=== PATIENT | female | born 1945 | race Caucasian/White ===

== ENCOUNTER 2017-09-15 12:07 | Inpatient (IN) | payer MEDICARE, OTHER ==
[~2017-09-15] VITALS: Ht 149.9 cm; Wt 53.2 kg
[2017-09-15] VITALS (12 sets, daily range): BP systolic 95–154; BP diastolic 43–88; PULSE 64–85; RESP 17–28; Ht 149.9 cm; Wt 53.2 kg
[2017-09-15] MEDS ORDERED: AMLO-147 PO (13:40)
[2017-09-15] MEDS ORDERED: CARV12.579 PO (13:40)
[2017-09-15] MEDS ORDERED: ISOS30TA18 PO (13:40)
[2017-09-15] MEDS ORDERED: ATOR10TA65 PO (13:40)
[2017-09-15] MEDS ORDERED: MUCO4 PO (13:40)
[2017-09-15] MEDS ORDERED: ASPI-535 PO (13:40)
[2017-09-15] MEDS ORDERED: HYDR-3672 PO (13:40)
[2017-09-15] MEDS ORDERED: LIDOCAINE 1% (MDV) 20 ML INJ ONE (14:34)
[2017-09-15] MEDS ORDERED: MIDAZOLAM 1 MG/ML 2 ML INJ ONE (14:35)
[2017-09-15] MEDS ORDERED: FENTAnyl 50 MCG/ML VIAL ONE (14:35)
[2017-09-15] MEDS ORDERED: HEPARIN 1000 UNITS/ML 10 ML INJ ONE (14:44)
[2017-09-15] MEDS ORDERED: NITROGLYCERIN (IC) 100 MCG/ML INJ ONE (14:44)
[2017-09-15] MEDS ORDERED: VERAPAMIL 5 MG INJ ONE (14:44)
[2017-09-15] MEDS ORDERED: IODIXANOL LOCM 100 ML BTL ONE (16:35)
[2017-09-15] MEDS ORDERED: ASPIRIN 325 MG TAB ONE (16:54)
[2017-09-15] MEDS ORDERED: CLOPIDOGREL 300 MG TAB ONE (16:54)
[2017-09-15] MEDS ORDERED: morphine 2 MG INJ IV PRN (17:30)
[2017-09-15] MEDS ORDERED: hydrALAzine 20 MG INJ IV PRN (17:30)
--- NOTE | 2017-09-15 17:50 | OPR ---
Date/Time of Note Date/Time of Note DATE: 09/15/17 TIME: 17:27 Operative Report Procedure Date: Sep 15, 2017 Preoperative Diagnosis unstable angina Postoperative Diagnosis unstable angina s/p PCI of RCA Surgeon see signature line Chip Applying Machine Tender none Anesthesia Type: moderate sedation Estimated Blood Loss: minimal Transfusion none Specimen none Grafts/Implants none Complications none Procedure Description Procedure Date: 09/15/2017 Director Of Institutional Research/surgeon: Camelia Fisehr MD. Procedures Performed: 1)Left heart catheterization with selective left and right coronary angiography. 2)Selective left subclavian artery angiography 3)Selective right femoral artery angiography 4)iFR of prox-mid RCA (positive at 0.3) 5)Balloon angioplasty and stenting of the prox-mid RCA with a Synergy 2.5 x 28 stent. 6)ultrasound guided left radial artery access. 7)Micropuncture access of right femoral artery. Pre-operative Diagnosis:unstable angina Post-operative Diagnosis:unstable angina s/p PCI of iFR positive RCA Indications: 72 yo F with a h/o HFpEF (EF 55%), chronic aflutter s/p failed ablation on Eliquis, PVD with left leg bypass and left CEA, CKD (Cr 2), DM, HTN , who presented with SOB and chest pain and was found to have heart failure. The pt had ongoing chest pain requiring NTG drip and though trops were negative , there was a concern for ischemia related flash pulmonary edema for which the decision was made for cardiac catheterization. Description of Procedure: After informed consent, the patient was brought to the cardiac catheterization lab. The procedure site was prepped and draped in usual manner. The patient was premedicated with versed 1 mg and fentanyl 25 mcg. 2 mL lidocaine was injected into the left wrist. Next using the posterior wall technique and under ultrasound guidance, the 6/5 bolivian sheath was inserted into the left radial artery. The wire would not advance past the mid subclavian and angiography revealed what appeared to be a subclavian occlusion. The decision was made for femoral access instead. 5 mL lidocaine was injected into the right groin. Next using the Seldinger technique and with micropuncture access, the 5 bolivian sheath was inserted into the right femoral artery. Next using the JL3.0 and eventually Sammy catheter (anterior take-off), selective angiography of the left and right coronary arteries were obtained. The decision was made to proceed with iFR of the prox-mid RCA. Angiomax was used for anticoagulation. After multiple attempts with guide engagement, a Sammy posterior was used. The iFR wire was advanced, equalized, and then crossed the lesion. iFR was measured at 0.3 and FFR at baseline was 0.55. The decision was made to proceed with PCI. After was given, the iFR wire was removed and the PT 2 moderate support angioplasty wire was advanced past the lesion. Next the 2.0 X 12 balloon was used to dilate the lesion times 3 at a maximum of 10 balwinder. Subsequently, the Synergy 2.5 x 28 stent was advanced to the lesion and deployed at 12 balwinder. Next the stent was post dilated with the 2.75 X 15 noncompliant balloon times 3 at a maximum of 14 balwinder. Final angiography revealed STEF 3 flow, no edge dissection, and appropriate stent expansion. Next all equipment was removed and hemostasis was achieved by TR band in the wrist and manual compression in the groin Findings: Anatomy/Hemodynamics: Left main:ostial 30%, distal 20-30% LAD: small vessel which tapers distally to 0.5mm vessel and is diffusely diseased Diagonal:small vessel with prox 50% Circumflex:luminal irregularities Obtuse marginal:very tortuous vessel with mid 50% RCA: prox long 50-60% followed by mid patent stent PDA:luminal irregularities PLV:luminal irregularities Left subclavian: angiographically occluded Right SFA: occluded LV angiography:not done Contrast used:145 mL Fluoroscopy time:24.4min Medications used: Versed 1.5mg Fentanyl 50mcg radial cocktail: 2000 heparin, 200 NTG, 2.5 verapamil angiomax ASA 325mg plavix 600mg Equipment used: 6 bolivian Sammy right posterior guide iFR and PT 2 moderate support angioplasty wire 2 x 12 balloon Synergy 2.5 x 28 drug eluting stent 2.75 x 15 noncompliant balloon Estimated blood loss<10 mL. Specimen: none Grafts/implants: none Complications: none Assessment: Unstable angina: s/p PCI of prox-mid RCA Acute on chronic diastolic heart failure: Possibly ischemia driven. EF 55%. Compensated PVD: left femoral bypass per report. Also has left CEA. Cath also shows left subclavian and right SFA occlusion CKD: baseline Cr 2 DM HTN Plan: -ASA 81mg for one month as will be on triple therapy -plavix 75mg -eventually resume Eliquis -coreg 12.5mg BID -hydralazine 50mg TID, isordil 20mg TID (home meds) -amlodipine 10mg CAMELIA FISHER Sep 15, 2017 17:50
--- NOTE | 2017-09-15 17:51 | CONS ---
Date/Time of Note Date/Time of Note DATE: 09/15/17 TIME: 17:50 Assessment/Plan Assessment/Plan Chief Complaint/Hosp Course Unstable angina: s/p PCI of prox-mid RCA Acute on chronic diastolic heart failure: Possibly ischemia driven. EF 55%. Compensated PVD: left femoral bypass per report. Also has left CEA. Cath also shows left subclavian and right SFA occlusion CKD: baseline Cr 2. Monitor post cath DM HTN Plan: -ASA 81mg for one month as will be on triple therapy -plavix 75mg -eventually resume Eliquis -coreg 12.5mg BID -hydralazine 50mg TID, isordil 20mg TID (home meds) -amlodipine 10mg Problems: Consultation Date/Type/Reason Admit Date/Time Initial Consult Date 24 HR Interval Summary Free Text/Dictation s/p cath and PCI of RCA. See procedure note. Doing well post Exam/Review of Systems Vital Signs Vitals Vital Signs Date Time Temp Pulse Resp B/P Pulse Ox O2 Delivery O2 Flow Rate FiO2 09/15/17 13:15 98.5 85 17 154/63 100 Nasal Cannula 2.0 Exam Constitutional: alert, oriented Psych: nl mood/affect, no complaints Head: atraumatic, normocephalic Eyes: nl conjunctiva ENMT: nl external ears & nose Neck: supple, No jvd Respiratory: clear to auscultation, No crackles/rales Cardiovascular: systolic murmur (2/6 LOU), No edema, No regular rate and rhythm (IRIR) Gastrointestinal: non-tender, soft, No distended Musculoskeletal: nl extremities to inspection Neurological: nl mental status, nl speech CAMELIA GAITAN Sep 15, 2017 17:51
[2017-09-15] MEDS ORDERED: ATORVASTATIN 40 MG TAB PO SCH (21:00)
[2017-09-15] MEDS: ISOSORBIDE DINITRATE 20 MG TAB PO SCH (21:27)
[2017-09-15] MEDS ORDERED: ALPRAZOLAM 0.25 MG TAB PO SCH (22:00)
[2017-09-15] MEDS ORDERED: ALPRAZOLAM 0.25 MG TAB PO PRN (23:00)
[2017-09-16] VITALS (17 sets, daily range): BP systolic 78–147; BP diastolic 41–91; PULSE 62–91; RESP 9–30
[2017-09-16 07:41] LABS: BASOPHILS % 0.3 % (0.0-2.0); EOSINOPHILS # 0.2 10^3/ul (0.0-0.5); EOSINOPHILS % 3.8 % (0.0-7.0); HEMATOCRIT 33.4 % (37.0-47.0); HEMOGLOBIN 9.9 g/dl (12.0-16.0); LYMPHOCYTES # 0.8 10^3/ul (0.8-2.9); LYMPHOCYTES % 13.2 % (15.0-51.0); MEAN CORPUSCULAR HEMOGLOBIN 28.4 pg (29.0-33.0); MEAN CORPUSCULAR HGB CONC 29.6 g/dl (32.0-37.0); MEAN CORPUSCULAR VOLUME 95.7 fl (82.0-101.0); MEAN PLATELET VOLUME 11.4 fl (7.4-10.4); MONOCYTE # 0.7 10^3/ul (0.3-0.9); MONOCYTES % 10.2 % (0.0-11.0); NEUTROPHIL # 4.6 10^3/ul (1.6-7.5); NEUTROPHILS % 72.2 % (39.0-77.0); PLATELET COUNT 158 10^3/UL (140-415); RED BLOOD COUNT 3.49 10^6/ul (4.20-5.40); RED CELL DISTRIBUTION WIDTH 15.2 % (11.5-14.5); WHITE BLOOD COUNT 6.4 10^3/ul (4.8-10.8)
[2017-09-16 07:55] LABS: CALCIUM 9.5 mg/dl (8.4-10.2); CREATININE 1.92 mg/dl (0.44-1.00)
[2017-09-16] MEDS ORDERED: AMLODIPINE 10 MG TAB PO SCH (09:00)
[2017-09-16] MEDS ORDERED: CLOPIDOGREL 75 MG TAB PO SCH (09:00)
[2017-09-16] MEDS ORDERED: ASPIRIN 81 MG TAB PO SCH (09:00)
[2017-09-16] MEDS ORDERED: FUROSEMIDE 20 MG TAB PO SCH (09:00)
--- NOTE | 2017-09-16 09:14 | HP ---
DATE OF ADMISSION: 09/15/2017 CHIEF COMPLAINT: Coronary artery disease. HISTORY OF PRESENT ILLNESS: This is a 72-year-old female with a past medical history of AFib on Li sandrine, history of peripheral vascular disease, status post lower extremity bypass, history of CKD wit h baseline creatinine around 2 mg/dL, history of diabetes, hypertension, presented to an outside [facility] with shortness of breath. The patient was found to have acute diastolic heart failure. The p atient was treated with diuretic therapy and the patient was evaluated by senior buyer planner and was trans ferred to [facility] to undergo elective cardiac cath due to shortness of breath, unstable angina. The patient had a cardiac cath performed by Dr. Fisher with PCI to the RCA. P ostoperatively, the patient was transferred to intensive care unit for evaluation. Overnight, the p atient has been clinically stable. There have been no reports of any hemoptysis, hematemesis or hem atochezia. PAST MEDICAL HISTORY: As stated above, history of peripheral vascular disease, history of coronary artery disease, history of CHF, history of CKD, history of hypertension. PAST SURGICAL HISTORY: Status post ablation, status post lower extremity bypass and status post PCI . FAMILY HISTORY: Noncontributory. SOCIAL HISTORY: Does not drink, smoke or do drugs actively. MEDICATIONS: The patient's medications have been reviewed and reconciled. ALLERGIES: PATIENT IS ALLERGIC TO SULFA. REVIEW OF SYSTEMS: A 14-point review of systems was conducted. Pertinent positives stated in HPI, otherwise negative. PHYSICAL EXAMINATION: VITAL SIGNS: Blood pressure is 136/43, respirations 14, pulse 72, temperature is 98.2. HEENT: Head is normocephalic. NECK: Supple. HEART: Regular rate. LUNGS: Show diminished breath sounds at the base. ABDOMEN: Soft, nontender to palpation. No rebound or guarding. EXTREMITIES: Negative for clubbing, cyanosis, no edema. DERMATOLOGIC: No rashes. MUSCULOSKELETAL: No joint effusions. NEUROLOGIC: No focal deficits. LABORATORY DATA: Shows sodium 142, potassium , BUN 46, creatinine 1.92. White count 6.4, hemo globin 9.9, hematocrit 33.4, platelet count 158. ASSESSMENT AND PLAN: This is a 72-year-old female who presents with: 1. Chest pain with acute coronary syndrome and coronary artery disease. The patient is status post percutaneous coronary intervention to right coronary artery. The patient is currently stable. Stanford n is to continue medical management. We will continue aspirin and Plavix. Continue statin therapy. Continue Isordil. Follow up with cardiology for further recommendations. 2. Acute on chronic diastolic heart failure. The patient is clinically improving. Continue curren t diuretic regimen. 3. Nonoliguric acute kidney injury on top of chronic kidney disease with previous baseline creatini ne around 2.0 mg/dL. Etiology of acute kidney injury is secondary to hemodynamics. Renal function has improved. We will continue current treatment plan, supportive care, renally dose all meds. 4. Peripheral vascular disease, status post lower extremity bypass. Continue medical management. 5. Atrial fibrillation, status post ablation. Continue medical management. Continue Eliquis. 6. Diabetes. Continue current insulin regimen. 7. Hypertension. Continue current blood pressure regimen. 8. History of chronic obstructive pulmonary disease. The patient is on home oxygen and will contin ue. 9. Gastrointestinal and deep venous thrombosis prophylaxis. Continue proton pump inhibitor, Eliqui s, sequential leg squeezers. Please note I spent up to 25 minutes of [id number] time with the patient. The patient is FULL COD E. Dictated By: JENNIFER CEBALLOS/LUCY Conf#: [id number] DID#: [id number]
[2017-09-16] MEDS: ISOSORBIDE DINITRATE 20 MG TAB PO SCH ×2 (09:16→13:00)
--- NOTE | 2017-09-16 09:43 | CONS ---
Date/Time of Note Date/Time of Note DATE: 09/16/17 TIME: 09:40 Assessment/Plan Assessment/Plan Chief Complaint/Hosp Course Unstable angina: s/p PCI of prox-mid RCA Acute on chronic diastolic heart failure: Possibly ischemia driven. EF 55%. Compensated PVD: left femoral bypass per report. Also has left CEA. Cath also shows left subclavian and right SFA occlusion CKD: baseline Cr 2. Monitor post cath DM HTN -ASA 81mg for one month as will be on triple therapy -plavix 75mg -resume Eliquis on discharge -coreg 12.5mg BID -hydralazine 50mg TID, isordil 20mg TID (home meds) -amlodipine 10mg -ok for d/c from my perspective. Would check labs early next week Problems: Consultation Date/Type/Reason Admit Date/Time Sep 15, 2017 at 17:23 24 HR Interval Summary Free Text/Dictation No o/n events. Feels well. No SOB or CP Exam/Review of Systems Vital Signs Vitals Vital Signs Date Time Temp Pulse Resp B/P Pulse Ox O2 Delivery O2 Flow Rate FiO2 09/16/17 07:00 72 14 136/43 100 Nasal Cannula 3.0 09/16/17 04:00 98.2 Intake and Output 09/15/17 09/15/17 09/16/17 15:00 23:00 07:00 Intake Total 220 ml 250 ml Output Total 470 ml 195 ml Balance -250 ml 55 ml Exam Constitutional: alert, oriented Psych: nl mood/affect, no complaints Head: atraumatic, normocephalic Neck: supple, No jvd Respiratory: clear to auscultation, No crackles/rales Cardiovascular: regular rate and rhythm, systolic murmur (2/6 LOU), No edema Gastrointestinal: non-tender, soft Neurological: nl mental status, nl speech Results Result Diagram: 09/16/1718 09/16/1718 Results 24 hrs Laboratory Tests Test 09/16/17 07:18 White Blood Count 6.4 Red Blood Count 3.49 L Hemoglobin 9.9 L Hematocrit 33.4 L Mean Corpuscular Volume 95.7 Mean Corpuscular Hemoglobin 28.4 L Mean Corpuscular Hemoglobin Concent 29.6 L Red Cell Distribution Width 15.2 H Platelet Count 158 Mean Platelet Volume 11.4 H Neutrophils % 72.2 Lymphocytes % 13.2 L Monocytes % 10.2 Eosinophils % 3.8 Basophils % 0.3 Nucleated Red Blood Cells % 0.0 Neutrophils # 4.6 Lymphocytes # 0.8 Monocytes # 0.7 Eosinophils # 0.2 Basophils # 0.0 Nucleated Red Blood Cells # 0.0 Sodium Level 142 Potassium Level 4.0 Chloride Level 102 Carbon Dioxide Level 27 Anion Gap 17 H Blood Urea Nitrogen 46 H Creatinine 1.92 H Glucose Level 160 Calcium Level 9.5 Medications Medications Current Medications Morphine Sulfate (morphine) 2 mg Q2H PRN IV FOR NON CARDIAC PAIN (4-10); Start 09/15/17 at 17:30 Aspirin (Aspirin) 81 mg DAILY PO Last administered on 09/16/17 09:15; Admin Dose 81 MG; Start 09/16/17 at 09:00 Clopidogrel Bisulfate (plaVIX) 75 mg DAILY PO Last administered on 09/16/17 09:17; Admin Dose 75 MG; Start 09/16/17 at 09:00 Atorvastatin Calcium (Lipitor) 40 mg HS PO Last administered on 09/15/17 21: 27; Admin Dose 40 MG; Start 09/15/17 at 21:00 Carvedilol (Coreg) 12.5 mg BID PO Last administered on 09/16/17 09:16; Admin Dose 12.5 MG; Start 09/15/17 at 21:00 Hydralazine HCl (Apresoline) 50 mg TID PO Last administered on 09/16/17 09:15 ; Admin Dose 50 MG; Start 09/15/17 at 21:00 Isosorbide Dinitrate (Isordil) 20 mg TID PO Last administered on 09/16/17 09: 16; Admin Dose 20 MG; Start 09/15/17 at 21:00 Amlodipine Besylate (Norvasc) 10 mg DAILY PO Last administered on 09/16/17 09 :15; Admin Dose 10 MG; Start 09/16/17 at 09:00 Furosemide (Lasix) 20 mg DAILY PO Last administered on 09/16/17 09:16; Admin Dose 20 MG; Start 09/16/17 at 09:00 Hydralazine HCl (Apresoline) 10 mg Q4H PRN IV SBP >160; Start 09/15/17 at 17: 30 Alprazolam (Xanax) 0.25 mg TID PRN PO ANXIETY; Start 09/15/17 at 23:00 CAMELIA GAITAN Sep 16, 2017 09:43
[2017-09-16] MEDS ORDERED: CLOP75TA27 PO ×4 (13:34→13:41)
[2017-09-16] MEDS ORDERED: CLOP75TA28 PO (13:37)
== END 2017-09-16 16:56 | disposition home or self-care (01) | DRG 246 ==
LOC: CCL 12:07 → ICU 17:23 → CCL 19:52
PROVIDERS: ADMIT Internal Medicine Interventional Cardiology; ATTEND Internal Medicine Interventional Cardiology
PROC: 027034Z Dilation of Coronary Artery, One Artery with Drug-eluting Intraluminal Device, Percutaneous Approach (ICD-10-PCS; principal; 2017-09-15 14:00)
PROC: 4A023N7 Measurement of Cardiac Sampling and Pressure, Left Heart, Percutaneous Approach (ICD-10-PCS; 2017-09-15 14:00)
DX: I25.110 Atherosclerotic heart disease of native coronary artery with unstable angina pectoris (principal); I50.33 Acute on chronic diastolic (congestive) heart failure; N17.9 Acute kidney failure, unspecified; I13.0 Hypertensive heart and chronic kidney disease with heart failure and stage 1 through stage 4 chronic kidney disease, or unspecified chronic kidney disease; N18.9 Chronic kidney disease, unspecified; I77.89 Other specified disorders of arteries and arterioles; E11.9 Type 2 diabetes mellitus without complications; J44.9 Chronic obstructive pulmonary disease, unspecified; Z79.02 Long term (current) use of antithrombotics/antiplatelets
CPT/HCPCS: 80048; 85025; 87081; 93454; 93571; C1725; C1874; C1887; C18887; C1894; C9600; J1644; J2250; J3010; Q9967

== ENCOUNTER 2019-05-28 11:40 | Day surgery (SDC) | payer MEDICARE, OTHER ==
[~2019-05-28] VITALS: Ht 144.8 cm; Wt 59.5 kg
[2019-05-28] VITALS (11 sets, daily range): BP systolic 128–198; BP diastolic 61–82; PULSE 72–96; RESP 19–25; Ht 144.8 cm; Wt 59.5 kg
[~2019-05-28 11:40] MED LIST: ACET-2047 PO; ALBU2.5V3 NEB; ALPR0.5T6 PO; AMLO-147 PO; AMLO5TAB4 PO; ASPI-535 PO; ATOR-2 PO; ATOR10TA65 PO; BEN25 PO; CALC667C PO; CARV12.579 PO; CLOP75TA27 PO; DOCU-159 PO; HYDR-3672 PO; IPRA3AMP29 INHALATION; ISOS30TA20 PO; MAG-19 PO; METO-335 PO; ONDA4SOL IV*; PANT40TA3 PO; POTA-57 PO; SS SC
--- NOTE | 2019-05-28 12:07 | PREAC ---
Date/Time of Note Date/Time of Note DATE: 05/28/19 TIME: 12:02 Anesthesia Eval and Record Evaluation Time Pre-Procedure Interview DATE: 05/28/19 TIME: 12:02 Age 73 Sex female NPO: 8 hrs Preoperative diagnosis Renal failure Planned procedure AV fistula placement, permacath placement Past Medical History Past Medical History: Includes Cardio: HTN, Dyslipidemia, [place], CAD (s/p multiple stents), PTCA/Stent, Arrythmia (atrial fibrillation, currently NSR) Pulm: COPD, Other (pul HTN) Renal: CKD GI: Other (hx GI bleed) Heme: Anemia Surgery & Anesthesia Issues No known issue Meds Anticoagulation: Yes (plavix 75 mg last dose yesterday, Dr Chadwick aware and wishes to proceed with surgery today) Beta Shannan within 24 hr: Yes Reported Medications Clopidogrel Bisulfate (Clopidogrel) 75 Mg Tablet, 75 MG PO DAILY, #30 TAB 09/16/17 Aspirin Ec (Aspir 81) 81 Mg Tablet.dr, 81 MG PO DAILY, #30 TAB 09/15/17 Isosorbide Dinitrate* (Isosorbide Dinitrate*) 30 Mg Tablet, 60 MG PO DAILY, TAB 09/15/17 Carvedilol* (Carvedilol*) 12.5 Mg Tablet, 12.5 MG PO BID, #60 TAB 09/15/17 Atorvastatin Calcium (Atorvastatin Calcium) 10 Mg Tablet, 10 MG PO QHS, #30 TAB 09/15/17 Hydralazine Hcl* (Hydralazine Hcl*) 50 Mg Tab, 50 MG PO TID, #90 TAB 09/15/17 Amlodipine Besylate* (Amlodipine Besylate*) 10 Mg Tablet, 10 MG PO DAILY, #30 TAB 09/15/17 Meds reviewed: Yes Allergies Coded Allergies: Sulfa (Sulfonamide Antibiotics) (Verified Allergy, Unknown, UNKNOWN NOT REMEMBER, 05/28/19) adhesive tape (Verified Allergy, Unknown, unknown, 05/28/19) sulfur (Verified Allergy, Unknown, 05/28/19) zolpidem (Verified Allergy, Unknown, unknown, 05/28/19) Allergies Reviewed: Yes Labs/Studies Labs Reviewed: Reviewed by anesthesiologist test: N/A Studies: ECG (NSR anterior ST elevation, prolonged QT), Stress test (Lexiscan 7/24/19 small reversible perfusion defect in the apex, distal anterior, distal anteroseptal zavaleta, mild hypokinesis LV, EF 47%) Pre-procedure Exam Airway: Adequate mouth opening, Adequate thyromental dist Mallampati: Mallampati II Teeth: Normal Lung: Normal Heart: Normal ASA Physical Status ASA physical status: 3 Emergency: E Planned Anesthetic General/MAC: ETT Planned Pain Management Parenteral pain med, Local by surgeon Pre-operative Attestations Prior to commencing anesthesia and surgery, the patient was re-evaluated, there was verification of: *The patient's identity *The results of appropriate recent lab work and preoperative vital signs *The above evaluation not changing prior to induction *Anesthetic plan, risk benefits, alternative and complications discussed with patient/family; questions answered; patient/family understands, accepts and wishes to proceed. TAMARA GALEANA May 28, 2019 12:07
[2019-05-28] MEDS ORDERED: POLYMYXIN/BACITRACIN 1L IRRIG ONE (12:14)
[2019-05-28] MEDS ORDERED: GELATIN SIZE 100 SPONGE ONE (12:14)
[2019-05-28] MEDS ORDERED: LIDOCAINE 1% (MPF) 30 ML INJ ONE (12:14)
[2019-05-28] MEDS ORDERED: BUPIVACAINE 0.25% (MPF) 30 ML INJ ONE (12:14)
[2019-05-28] MEDS ORDERED: THROMBIN 5000 UNIT (RECOTHROM) VIAL ONE (12:14)
[2019-05-28] MEDS ORDERED: ROCURONIUM 50 MG INJ ONE (12:27)
[2019-05-28] MEDS ORDERED: LIDOCAINE 2% (SDV) 5 ML INJ ONE (12:27)
[2019-05-28] MEDS ORDERED: FENTAnyl 50 MCG/ML VIAL ONE (12:27)
[2019-05-28] MEDS ORDERED: ETOMIDATE 20 MG INJ ONE (12:27)
[2019-05-28] MEDS ORDERED: CEFAZOLIN 1 GM INJ ONE (13:36)
[2019-05-28] MEDS ORDERED: ONDANSETRON 4 MG INJ ONE (13:40)
[2019-05-28] MEDS ORDERED: FAMOTIDINE 20 MG INJ ONE (13:40)
[2019-05-28] MEDS ORDERED: METOCLOPRAMIDE 10 MG INJ ONE (13:40)
[2019-05-28] MEDS ORDERED: IOHEXOL 300MG/ML 30 ML BTL ONE (14:27)
[2019-05-28] MEDS ORDERED: LABETALOL HCL 20MG INJ IV PRN (14:30)
[2019-05-28] MEDS ORDERED: hydrALAzine 20 MG INJ IV PRN (14:30)
[2019-05-28] MEDS ORDERED: ONDANSETRON 4 MG INJ IV PRN (14:30)
[2019-05-28] MEDS ORDERED: HYDROmorphONE 1 MG/5 ML IV SYRINGE IV PRN ×3 (14:30)
[2019-05-28] MEDS ORDERED: OXYCODONE/ACETAMINOPHEN (5/325) TAB PO PRN ×2 (14:30)
[2019-05-28] MEDS ORDERED: EPHEDrine 25 MG/5 ML SYG ONE (14:46)
[2019-05-28] MEDS: HEPARIN 1000 UNITS/ML 10 ML INJ ONE ×2 (15:00→15:07)
[2019-05-28] MEDS ORDERED: HEPARIN 1000 UNITS/ML 10 ML INJ ONE (15:04)
[2019-05-28] MEDS ORDERED: SUGAMMADEX SODIUM 200 MG/2 ML VIAL IV ONE (15:07)
== END 2019-05-28 19:00 | disposition home or self-care (01) ==
LOC: SUR 11:40 → SDS 11:40 → SUR 19:00
PROVIDERS: ATTEND Thoracic Surgery (Cardiothoracic Vascular Surgery)
DX: I12.0 Hypertensive chronic kidney disease with stage 5 chronic kidney disease or end stage renal disease (principal); E11.22 Type 2 diabetes mellitus with diabetic chronic kidney disease; N18.6 End stage renal disease; I25.10 Atherosclerotic heart disease of native coronary artery without angina pectoris; Z95.5 Presence of coronary angioplasty implant and graft; E78.5 Hyperlipidemia, unspecified; I48.91 Unspecified atrial fibrillation; Z87.891 Personal history of nicotine dependence
CPT/HCPCS: 36558; 36821; 71045; C1725; C1752; J0360; J0690; J1170; J1644; J2405; J2765; J3010; Q9967

== ENCOUNTER 2019-06-25 10:40 | Emergency (ER) | payer SELFPAY ==
[~2019-06-25 10:40] MED LIST changes: -ASPI-535 PO; -ATOR10TA65 PO; -CARV12.579 PO; +FURO-109 PO; +ISOS10TA2 PO
== END 2019-06-25 11:59 | disposition left against medical advice (07) ==
LOC: E/R 10:40
DX: Z53.21 Procedure and treatment not carried out due to patient leaving prior to being seen by health care provider (principal)

== ENCOUNTER 2019-06-28 05:45 | Inpatient (IN) | payer MEDICARE, OTHER ==
[2019-06-28] VITALS (14 sets, daily range): BP systolic 119–158; BP diastolic 36–89; PULSE 81–98; RESP 10–28; Ht 149.9 cm; Wt 55.7 kg
[~2019-06-28] VITALS: Ht 149.9 cm; Wt 55.7 kg
[2019-06-28] MEDS ORDERED: MIDAZOLAM 1 MG/ML 2 ML INJ ONE (06:31)
[2019-06-28] MEDS ORDERED: FENTAnyl 50 MCG/ML VIAL ONE (06:31)
[2019-06-28] MEDS ORDERED: IODIXANOL LOCM 100 ML BTL ONE ×4 (06:31→08:49)
[2019-06-28] MEDS ORDERED: LIDOCAINE 1% (MDV) 20 ML INJ ONE (06:34)
[2019-06-28] MEDS ORDERED: NITROGLYCERIN (IC) 100 MCG/ML INJ ONE (06:35)
[2019-06-28] MEDS ORDERED: hydrALAzine 20 MG INJ ONE (08:07)
[2019-06-28] MEDS ORDERED: IODIXANOL LOCM 50 ML BTL ONE (08:49)
[2019-06-28] MEDS ORDERED: SOD CHLORIDE 0.9% 100 ML ONE (08:49)
[2019-06-28] MEDS ORDERED: HEPARIN 25000 UNIT/250 ML ONE ×2 (09:12→10:46)
[2019-06-28] MEDS ORDERED: ASPIRIN 81 MG TAB PO SCH (09:30)
[2019-06-28] MEDS ORDERED: CLOPIDOGREL 75 MG TAB PO SCH (09:30)
[2019-06-28] MEDS ORDERED: GELATIN SIZE 100 SPONGE ONE (09:54)
[2019-06-28] MEDS ORDERED: THROMBIN 5000 UNIT (RECOTHROM) VIAL ONE (09:55)
[2019-06-28] MEDS ORDERED: HEPARIN 1000 UNITS/ML 10 ML INJ ONE ×2 (09:55→11:33)
[2019-06-28] MEDS ORDERED: IOHEXOL 300MG/ML 30 ML BTL ONE (09:58)
[2019-06-28] MEDS ORDERED: HEPARIN 1000 UNITS/ML 10 ML INJ IV PRN (10:00)
[2019-06-28] MEDS ORDERED: HEPARIN 1000 UNITS/ML 10 ML INJ IV ONE (10:00)
[2019-06-28] MEDS ORDERED: ROCURONIUM 50 MG INJ ONE (10:29)
[2019-06-28] MEDS ORDERED: SUCCINYLCHOLINE CHLORIDE 100 MG/5 ML SYG IV ONE (10:29)
[2019-06-28] MEDS ORDERED: GLYCOPYRROLATE 0.4 MG INJ ONE (10:29)
[2019-06-28] MEDS ORDERED: LIDOCAINE 2% (SDV) 5 ML INJ ONE (10:29)
[2019-06-28] MEDS ORDERED: PROPOFOL 20 ML ONE (10:29)
[2019-06-28] MEDS ORDERED: EPHEDrine 25 MG/5 ML SYG ONE (10:29)
[2019-06-28] MEDS ORDERED: NEOSTIGMINE 3 MG/3 ML SYRINGE ONE (10:29)
[2019-06-28] MEDS ORDERED: VANCOMYCIN 1 GM (PMX) 250 ML ONE (11:01)
[2019-06-28] MEDS ORDERED: ONDANSETRON 4 MG INJ ONE (12:28)
[2019-06-28] MEDS ORDERED: METOCLOPRAMIDE 10 MG INJ ONE (12:28)
[2019-06-28] MEDS ORDERED: EPHEDrine 25 MG/5 ML SYG IV PRN (12:30)
[2019-06-28] MEDS ORDERED: DIPHENHYDRAMINE 50 MG INJ IV PRN (12:30)
[2019-06-28] MEDS ORDERED: HYDROmorphONE 0.5 MG/0.5 ML SYG IV PRN ×3 (12:30)
[2019-06-28] MEDS ORDERED: hydrALAzine 20 MG INJ IV PRN (12:30)
[2019-06-28] MEDS ORDERED: FENTAnyl 50 MCG/ML VIAL IV PRN ×3 (12:30)
[2019-06-28] MEDS ORDERED: MEPERIDINE 25 MG INJ IV PRN (12:30)
[2019-06-28] MEDS ORDERED: LABETALOL HCL 20MG INJ IV PRN (12:30)
[2019-06-28] MEDS ORDERED: ONDANSETRON 4 MG INJ IV PRN (12:30)
[2019-06-28] MEDS ORDERED: MIDAZOLAM 1 MG/ML 2 ML INJ IV PRN (12:30)
[2019-06-28] MEDS ORDERED: METOCLOPRAMIDE 10 MG INJ IV PRN (12:30)
[2019-06-28] MEDS ORDERED: GELATIN SIZE 100 SPONGE TOP ONE (12:34)
[2019-06-28] MEDS: HEPARIN 25000 UNITS/250 ML 250 ML IV SCH (14:11)
[2019-06-28] MEDS ORDERED: GLUCOSE GEL 15 GRAM TUBE BUCCAL PRN (16:00)
[2019-06-28] MEDS ORDERED: GLUCAGON 1 MG INJ IM PRN (16:00)
[2019-06-28] MEDS ORDERED: DEXTROSE 50% 50 ML SYRINGE IV PRN ×2 (16:00)
[2019-06-28] MEDS ORDERED: GLUCOSE GEL 15 GRAM TUBE PO PRN ×2 (16:00)
[2019-06-28] MEDS: CALCIUM ACETATE 667 MG CAP PO SCH (17:46)
[2019-06-28] MEDS: INSULIN ASPART [NOVOLOG] 3 ML PEN SC SCH ×2 (18:38→20:31)
[2019-06-28] MEDS: ALPRAZOLAM 0.5 MG TAB PO PRN (19:54)
[2019-06-28] MEDS: HYDROCODONE/APAP (10/325) TAB PO PRN (20:03)
[2019-06-28] MEDS: DOCUSATE SODIUM 100 MG CAP PO SCH (20:28)
[2019-06-28] MEDS: ATORVASTATIN 40 MG TAB PO SCH (20:28)
[2019-06-29] VITALS (34 sets, daily range): BP systolic 76–162; BP diastolic 31–96; PULSE 81–102; RESP 16–25
[2019-06-29] MEDS: HYDROCODONE/APAP (10/325) TAB PO PRN ×3 (00:06→23:20)
[2019-06-29] MEDS: ACCU-CHEK XX SCH (02:01)
[2019-06-29] MEDS: CALCIUM ACETATE 667 MG CAP PO SCH ×4 (07:35→17:48)
[2019-06-29] MEDS: INSULIN ASPART [NOVOLOG] 3 ML PEN SC SCH ×4 (08:16→20:30)
[2019-06-29] MEDS: METOPROLOL 25 MG TAB PO SCH ×3 (08:18→20:23)
[2019-06-29] MEDS: DOCUSATE SODIUM 100 MG CAP PO SCH ×3 (08:18→20:26)
[2019-06-29] MEDS: FAMOTIDINE 20 MG TAB PO SCH ×3 (08:18→20:22)
[2019-06-29] MEDS: PANTOPRAZOLE (EC) 40 MG TAB PO SCH ×2 (08:19→09:00)
[2019-06-29] MEDS: ASPIRIN 81 MG TAB PO SCH ×2 (08:19→09:00)
[2019-06-29] MEDS ORDERED: AMLODIPINE 10 MG TAB PO SCH (09:00)
[2019-06-29] MEDS: morphine 2 MG INJ IV PRN ×4 (12:28→23:20)
[2019-06-29] MEDS ORDERED: ALTEPLASE (CATHFLO) 2 MG INJ CATHETER PRN (14:30)
[2019-06-29] MEDS: HEPARIN 25000 UNITS/250 ML 250 ML IV SCH (14:42)
[2019-06-29] MEDS ORDERED: EPOETIN ALFA-EPBX (ESRD) 10,000 UNIT/ML VIAL SC SCH (17:00)
[2019-06-29] MEDS: ALPRAZOLAM 0.5 MG TAB PO PRN (19:15)
[2019-06-29] MEDS: ATORVASTATIN 40 MG TAB PO SCH (20:22)
[2019-06-29] MEDS ORDERED: THROMBIN 5000 UNIT (RECOTHROM) VIAL ONE (23:50)
[2019-06-29] MEDS ORDERED: BUPIVACAINE 0.5% (SDV) 30 ML INJ ONE (23:50)
[2019-06-29] MEDS ORDERED: LIDOCAINE 1% (MPF) 30 ML INJ ONE (23:50)
[2019-06-29] MEDS ORDERED: GELATIN SIZE 100 SPONGE ONE (23:50)
[2019-06-29] MEDS ORDERED: HEPARIN 1000 UNITS/ML 10 ML INJ ONE (23:51)
[2019-06-30] VITALS (23 sets, daily range): BP systolic 82–137; BP diastolic 35–68; PULSE 81–96; RESP 10–33
[2019-06-30] MEDS ORDERED: MIDAZOLAM 1 MG/ML 2 ML INJ ONE (00:11)
[2019-06-30] MEDS ORDERED: ONDANSETRON 4 MG INJ ONE (00:12)
[2019-06-30] MEDS ORDERED: FENTAnyl 50 MCG/ML VIAL ONE (00:12)
[2019-06-30] MEDS ORDERED: VANCOMYCIN 1 GM (PMX) 250 ML ONE (00:34)
[2019-06-30] MEDS ORDERED: SUGAMMADEX SODIUM 200 MG/2 ML VIAL IV ONE (01:48)
[2019-06-30] MEDS: ACCU-CHEK XX SCH (02:00)
[2019-06-30] MEDS: PANTOPRAZOLE (EC) 40 MG TAB PO SCH (09:17)
[2019-06-30] MEDS: morphine 2 MG INJ IV PRN (09:17)
[2019-06-30] MEDS: DOCUSATE SODIUM 10 MG/ML (10ML CUP) PO SCH ×2 (09:17→20:13)
[2019-06-30] MEDS: ASPIRIN 81 MG TAB PO SCH (09:18)
[2019-06-30] MEDS: METOPROLOL 25 MG TAB PO SCH ×2 (09:18→20:14)
[2019-06-30] MEDS: FAMOTIDINE 20 MG TAB PO SCH (09:18)
[2019-06-30] MEDS: CALCIUM ACETATE 667 MG CAP PO SCH ×3 (09:18→18:45)
[2019-06-30] MEDS: INSULIN ASPART [NOVOLOG] 3 ML PEN SC SCH ×4 (09:35→20:54)
[2019-06-30] MEDS ORDERED: SOD CHLORIDE 0.9% 100 ML ONE (09:43)
[2019-06-30] MEDS ORDERED: IOHEXOL 100 ML ONE (09:43)
[2019-06-30] MEDS: HEPARIN 25000 UNITS/250 ML 250 ML IV SCH (11:33)
[2019-06-30] MEDS: ACETAMINOPHEN 325 MG TAB PO PRN (18:44)
[2019-06-30] MEDS: ATORVASTATIN 40 MG TAB PO SCH (20:13)
[2019-06-30] MEDS ORDERED: CEFEPIME 1GM/50 ML (PMX) 50 ML IVPB SCH (20:30)
[2019-07-01] VITALS (22 sets, daily range): BP systolic 60–135; BP diastolic 29–52; PULSE 58–118; RESP 17–30
[2019-07-01] MEDS: ACETAMINOPHEN 325 MG TAB PO PRN (00:36)
[2019-07-01] MEDS: ACCU-CHEK XX SCH (02:00)
[2019-07-01] MEDS ORDERED: VANCOMYCIN IV PER PHARMACY XX SCH (06:30)
[2019-07-01] MEDS ORDERED: VANCOMYCIN 500 MG (PMX) 100 ML IVPB ONE (06:30)
[2019-07-01] MEDS ORDERED: EPINEPHrine 0.1 MG/ML SYG ONE ×2 (07:00)
[2019-07-01] MEDS ORDERED: AMIODARONE 150 MG INJ ONE (07:00)
[2019-07-01] MEDS ORDERED: CA CHLORIDE 10% 10 ML SYRINGE ONE (07:00)
[2019-07-01] MEDS ORDERED: DEXTROSE 50% 50 ML SYRINGE ONE (07:00)
[2019-07-01] MEDS ORDERED: NA BICARBONATE 8.4% 50 ML SYG ONE ×3 (07:00→17:22)
[2019-07-01] MEDS ORDERED: SOD CHLORIDE 0.9% 500 ML IV ONE (08:00)
[2019-07-01] MEDS ORDERED: SOD CHLORIDE 0.9% 1,000 ML IV SCH (08:00)
[2019-07-01] MEDS: CALCIUM ACETATE 667 MG CAP PO SCH ×2 (08:24→12:57)
[2019-07-01] MEDS: INSULIN ASPART [NOVOLOG] 3 ML PEN SC SCH ×2 (08:38→13:01)
[2019-07-01] MEDS ORDERED: FAMOTIDINE 20 MG TAB PO SCH (09:00)
[2019-07-01] MEDS ORDERED: IOHEXOL 100 ML ONE (12:12)
[2019-07-01] MEDS ORDERED: SOD CHLORIDE 0.9% 100 ML ONE (12:13)
[2019-07-01] MEDS: DOCUSATE SODIUM 10 MG/ML (10ML CUP) PO SCH (12:57)
[2019-07-01] MEDS: ASPIRIN 81 MG TAB PO SCH (12:57)
[2019-07-01] MEDS ORDERED: DOPamine-D5W 1.6 MG/ML 250 ML ONE (16:56)
== END 2019-07-01 17:34 | disposition expired | DRG 252 ==
LOC: SDS 05:45 → REC 09:01 → UNDOADMIN 09:01 → SDS 09:01 → TEL 09:01 → ICU 09:39
PROVIDERS: ADMIT Internal Medicine Interventional Cardiology; ATTEND Internal Medicine Interventional Cardiology
PROC: 04QK0ZZ Repair Right Femoral Artery, Open Approach (ICD-10-PCS; 2019-06-28)
PROC: 04CK0ZZ Extirpation of Matter from Right Femoral Artery, Open Approach (ICD-10-PCS; 2019-06-28)
PROC: B211YZZ Fluoroscopy of Multiple Coronary Arteries using Other Contrast (ICD-10-PCS; 2019-06-28)
PROC: 4A023N7 Measurement of Cardiac Sampling and Pressure, Left Heart, Percutaneous Approach (ICD-10-PCS; principal; 2019-06-28 07:30)
PROC: 5A1D70Z Performance of Urinary Filtration, Intermittent, Less than 6 Hours Per Day (ICD-10-PCS; 2019-06-29)
PROC: 04JY0ZZ Inspection of Lower Artery, Open Approach (ICD-10-PCS; 2019-06-30)
PROC: 0JCL0ZZ Extirpation of Matter from Right Upper Leg Subcutaneous Tissue and Fascia, Open Approach (ICD-10-PCS; 2019-06-30)
PROC: 5A1935Z Respiratory Ventilation, Less than 24 Consecutive Hours (ICD-10-PCS; 2019-07-01)
PROC: 0BH17EZ Insertion of Endotracheal Airway into Trachea, Via Natural or Artificial Opening (ICD-10-PCS; 2019-07-01)
PROC: 5A12012 Performance of Cardiac Output, Single, Manual (ICD-10-PCS; 2019-07-01)
PROC: 04HL33Z Insertion of Infusion Device into Left Femoral Artery, Percutaneous Approach (ICD-10-PCS; 2019-07-01)
PROC: 5A2204Z Restoration of Cardiac Rhythm, Single (ICD-10-PCS; 2019-07-01)
DX: I21.4 Non-ST elevation (NSTEMI) myocardial infarction (principal); N18.6 End stage renal disease; I13.2 Hypertensive heart and chronic kidney disease with heart failure and with stage 5 chronic kidney disease, or end stage renal disease; I50.32 Chronic diastolic (congestive) heart failure; I48.92 Unspecified atrial flutter; E87.2 Acidosis; T82.868A Thrombosis due to vascular prosthetic devices, implants and grafts, initial encounter; L76.32 Postprocedural hematoma of skin and subcutaneous tissue following other procedure; D64.9 Anemia, unspecified; E87.5 Hyperkalemia; E11.22 Type 2 diabetes mellitus with diabetic chronic kidney disease; I25.10 Atherosclerotic heart disease of native coronary artery without angina pectoris; I48.0 Paroxysmal atrial fibrillation; I72.4 Aneurysm of artery of lower extremity; I46.9 Cardiac arrest, cause unspecified; Y83.8 Other surgical procedures as the cause of abnormal reaction of the patient, or of later complication, without mention of misadventure at the time of the procedure; Z99.2 Dependence on renal dialysis; Z95.828 Presence of other vascular implants and grafts; Z79.02 Long term (current) use of antithrombotics/antiplatelets; Z79.4 Long term (current) use of insulin; Z79.82 Long term (current) use of aspirin
CPT/HCPCS: 31500; 36430; 70450; 71045; 71275; 73706; 75635; 80048; 80053; 82962; 83605; 83735; 84100; 84145; 85025; 85610; 85730; 86850; 86900; 86901; 86920; 87081; 87340; 88305; 90935; 92950; 93005; 93458; 94002; C1725; C1751; C1887; J0171; J0282; J0360; J0692; J1265; J1644; J1815; J2250; J2270; J2405; J2710; J2765; J3010; J3370; J7030; J7040; P9016; Q5105; Q9967